=== PATIENT | female | born 1995 | race Caucasian/White ===

== ENCOUNTER 2020-11-03 11:31 | Emergency (ER) | payer MEDICAID ==
[2020-11-03] MEDS ORDERED: Proparacaine 0.5% Opth 15 ML BOT ONE (12:31)
[2020-11-03] MEDS ORDERED: Fluorescein Opthalmic Strip ONE (12:33)
== END 2020-11-03 13:15 | disposition home or self-care (01) ==
LOC: ERS 11:31
DX: S05.02XA Injury of conjunctiva and corneal abrasion without foreign body, left eye, initial encounter (principal); H72.91 Unspecified perforation of tympanic membrane, right ear; X58.XXXA Exposure to other specified factors, initial encounter
CPT/HCPCS: 99283

== ENCOUNTER 2020-12-06 13:41 | Emergency (ER) | payer OTHER | END 2020-12-06 14:24 | disposition home or self-care (01) | LOC: ERS 13:41 | DX: H10.9 Unspecified conjunctivitis (principal); S05.02XA Injury of conjunctiva and corneal abrasion without foreign body, left eye, initial encounter; X58.XXXA Exposure to other specified factors, initial encounter | CPT/HCPCS: 99283 ==